=== PATIENT | male | born 1950 | race Hispanic/Latino ===

== ENCOUNTER 2017-08-10 18:44 | Emergency (ER) | payer OTHER ==
[2017-08-10 19:33] LABS: APPEARANCE,URINE Clear (CLEAR); BILIRUBIN,URINE Negative (NEGATIVE); COLOR,URINE Yellow (YELLOW); GLUCOSE, URINE (UA) Negative (NEGATIVE); KETONES,URINE Negative (NEGATIVE); LEUKOCYTE ESTERASE ,URINE Negative (NEGATIVE); NITRATE,URINE Negative (NEGATIVE); OCCULT BLOOD,URINE Negative (NEGATIVE); PH,URINE 5.5 (5.0-8.0); PROTEIN,URINE Negative (NEGATIVE)
[2017-08-10 19:33] LABS: BASOPHILS % (AUTO) 0.2 % (0.0-5.0); HEMATOCRIT 40.8 % (42-54); LYMPHOCYTES % (AUTO) 29.2 % (21.0-51.0); MEAN CORPUSCULAR HEMOGLOBIN 33.1 pg (27.0-33.0); MEAN CORPUSCULAR HGB CONC 37.7 g/dL (32.0-36.0); MONOCYTES % (AUTO) 6.7 % (3.0-13.0); NEUTROPHILS % (AUTO) 61.9 % (40.0-77.0); NUCLEATED RED BLOOD CELLS 0.1 % (0.0-0.19); PLATELET COUNT (AUTO) 238 K/uL (130-400); RED BLOOD CELL COUNT(AUTO) 4.64 MIL/uL (4.50-6.20); RED CELL DISTRIBUTION WIDTH 13.3 % (11.0-15.5); WHITE BLOOD COUNT (AUTO) 6.8 K/uL (4.8-10.8)
[2017-08-10 19:54] LABS: CREATININE 1.3 mg/dL (0.5-1.5); POTASSIUM 4.1 mmol/L (3.5-5.1)
[2017-08-10 20:00] LABS: ALBUMIN 3.6 g/dL (3.5-5.0); BILIRUBIN,TOTAL 0.8 mg/dL (0.2-1.0); TOTAL PROTEIN, SERUM 7.4 g/dL (6.0-8.3)
[2017-08-10] MEDS ORDERED: CYCLOBENZAPRINE HCL 10 MG TABLET ONE (20:07)
== END 2017-08-10 20:13 | disposition home or self-care (01) ==
LOC: EDH 18:44
DX: M62.838 Other muscle spasm (principal); I10 Essential (primary) hypertension
CPT/HCPCS: 36415; 80053; 81003; 85025; 93005

== ENCOUNTER 2017-11-22 10:33 | Inpatient (IN) | payer OTHER, MEDICARE ==
[~2017-11-22] VITALS: Ht 175.3 cm; Wt 73.0 kg
[2017-11-22 11:21] LABS: BASOPHILS % (AUTO) 0.2 % (0.0-5.0); EOSINOPHILS % (AUTO) 2.5 % (0.0-8.0); HEMATOCRIT 45.1 % (42-54); MEAN CORPUSCULAR HEMOGLOBIN 31.6 pg (27.0-33.0); MEAN CORPUSCULAR HGB CONC 35.3 g/dL (32.0-36.0); MEAN CORPUSCULAR VOLUME 89.5 fL (79-99); MONOCYTES % (AUTO) 9.7 % (3.0-13.0); NEUTROPHILS % (AUTO) 58.6 % (40.0-77.0); NUCLEATED RED BLOOD CELLS 0.1 % (0.0-0.19); PLATELET COUNT (AUTO) 259 K/uL (130-400); RED BLOOD CELL COUNT(AUTO) 5.04 MIL/uL (4.50-6.20); RED CELL DISTRIBUTION WIDTH 12.6 % (11.0-15.5); WHITE BLOOD COUNT (AUTO) 7.1 K/uL (4.8-10.8)
[2017-11-22 11:28] LABS: CREATININE 1.5 mg/dL (0.5-1.5); POTASSIUM 3.5 mmol/L (3.5-5.1)
[2017-11-22 11:36] LABS: INR 1.04 (0.85-1.15); PARTIAL THROMBOPLASTIN TIME 30.7 SEC (26.3-35.5); PROTHROMBIN TIME 10.9 SEC (9.6-11.6)
[2017-11-22] MEDS ORDERED: SODIUM CHLORIDE 0.9% 1000ML 1,000 ML IV ONE (11:53)
[2017-11-22] MEDS ORDERED: SODIUM CHLORIDE 0.9% 500ML 500 ML IV ONE (13:54)
[2017-11-22 18:12] VITALS: BP 135/92
[2017-11-22] MEDS ORDERED: ENOXAPARIN SODIUM 30 MG/0.3 ML SQ SCH (19:00)
[2017-11-22] MEDS ORDERED: PANTOPRAZOLE SODIUM 40 MG TABLET.DR PO SCH (19:00)
[2017-11-22] MEDS: SODIUM CHLORIDE 0.9% 1000ML 1,000 ML IV SCH (19:05)
[2017-11-22 19:30] VITALS: BP 118/93
[2017-11-22] MEDS ORDERED: OMEP40CA37 PO (23:30)
[2017-11-22] MEDS ORDERED: NEBI20TA2 PO (23:30)
[2017-11-22] MEDS ORDERED: FURO40TA7 PO (23:30)
[2017-11-22] MEDS ORDERED: APIX5TAB PO (23:30)
[2017-11-22 23:53] VITALS: BP 148/91
[2017-11-23 04:00] VITALS: BP_SYST 136; BP_SYST 145; BP_DIAS 77; BP_DIAS 84
[2017-11-23 04:01] LABS: HEMATOCRIT 41.4 % (42-54); MEAN CORPUSCULAR HEMOGLOBIN 30.8 pg (27.0-33.0); MEAN CORPUSCULAR HGB CONC 34.3 g/dL (32.0-36.0); MEAN CORPUSCULAR VOLUME 89.9 fL (79-99); NUCLEATED RED BLOOD CELLS 0.1 % (0.0-0.19); PLATELET COUNT (AUTO) 183 K/uL (130-400); RED CELL DISTRIBUTION WIDTH 12.5 % (11.0-15.5)
[2017-11-23 04:42] LABS: CREATININE 1.4 mg/dL (0.5-1.5); POTASSIUM 3.4 mmol/L (3.5-5.1)
[2017-11-23 07:11] VITALS: BP 129/97
[2017-11-23] MEDS: SODIUM CHLORIDE 0.9% 1000ML 1,000 ML IV SCH ×2 (08:05→19:58)
[2017-11-23] MEDS: APIXABAN 5 MG TABLET PO SCH ×2 (09:31→19:58)
[2017-11-23] MEDS: NEBIVOLOL HCL 20 MG TABLET PO SCH ×2 (09:31→19:58)
[2017-11-23] MEDS: PANTOPRAZOLE SODIUM 40 MG TABLET.DR PO SCH (09:31)
[2017-11-23] MEDS: FUROSEMIDE 40 MG TABLET PO SCH ×2 (09:32→19:58)
[2017-11-23] MEDS ORDERED: POTASSIUM CHLORIDE 10% ELIXIR 20 MEQ/15 ML UDCUP PO PRN (10:00)
[2017-11-23] MEDS ORDERED: LIDOCAINE HCL-MPF 1% 2ML VIAL IVP PRN (10:00)
[2017-11-23] MEDS ORDERED: POTASSIUM CHLORIDE 20MEQ/100ML 100 ML IV PRN (10:00)
[2017-11-23 11:52] VITALS: BP 147/96
[2017-11-23] MEDS: POTASSIUM CHLORIDE 20 MEQ ERTAB PO PRN ×2 (12:02→18:48)
[2017-11-23 16:21] VITALS: BP 141/93
[2017-11-23 19:43] VITALS: BP 146/96
[2017-11-23 23:36] VITALS: BP 130/82
[2017-11-24 03:35] VITALS: BP 120/72
[2017-11-24 07:00] VITALS: BP 147/94
[2017-11-24] MEDS: APIXABAN 5 MG TABLET PO SCH (08:27)
[2017-11-24] MEDS: NEBIVOLOL HCL 20 MG TABLET PO SCH (08:27)
[2017-11-24] MEDS: PANTOPRAZOLE SODIUM 40 MG TABLET.DR PO SCH (08:27)
[2017-11-24] MEDS: FUROSEMIDE 40 MG TABLET PO SCH (08:27)
[2017-11-24 11:00] VITALS: BP 131/88
[2017-11-24] MEDS ORDERED: POTA-79 PO (15:01)
== END 2017-11-24 16:55 | disposition home or self-care (01) | DRG 201 ==
LOC: EDH 10:33 → 2DH 15:55
PROVIDERS: ADMIT Hospitalist; ATTEND Hospitalist
DX: I48.91 Unspecified atrial fibrillation (principal); S09.90XA Unspecified injury of head, initial encounter; I48.2 Chronic atrial fibrillation; I10 Essential (primary) hypertension; W06.XXXA Fall from bed, initial encounter; X58.XXXA Exposure to other specified factors, initial encounter; Z79.01 Long term (current) use of anticoagulants; Y93.89 Activity, other specified; Y92.098 Other place in other non-institutional residence as the place of occurrence of the external cause; Y99.8 Other external cause status; Z83.3 Family history of diabetes mellitus; Z82.49 Family history of ischemic heart disease and other diseases of the circulatory system; Z80.3 Family history of malignant neoplasm of breast
CPT/HCPCS: 36415; 70450; 71045; 72125; 80048; 82550; 83735; 84443; 84484; 85025; 85027; 85610; 85651; 85730; 86901; 87040; 93005; 93306; J1650; J7030; J7040

== ENCOUNTER 2020-07-29 18:17 | Observation (INO) | payer MEDICARE, OTHER ==
[~2020-07-29] VITALS: Ht 175.3 cm; Wt 72.6 kg
[~2020-07-29 18:17] MED LIST: APIX5TAB PO; FURO40TA7 PO; NEBI20TA2 PO; OMEP40CA13 PO; POTA-79 PO
[2020-07-29] MEDS ORDERED: ONDANSETRON HCL 4 MG/2 ML VIAL ONE (18:36)
[2020-07-29] MEDS ORDERED: KETOROLAC TROMETHAMINE 30MG/ML ONE (18:37)
[2020-07-29 18:53] LABS: BASOPHILS % (AUTO) 1.6 % (0.0-5.0); EOSINOPHILS % (AUTO) 3.3 % (0.0-8.0); HEMATOCRIT 42.1 % (42-54); LYMPHOCYTES % (AUTO) 40.2 % (21.0-51.0); MEAN CORPUSCULAR HEMOGLOBIN 31.6 pg (27.0-33.0); MEAN CORPUSCULAR HGB CONC 36.3 g/dL (32.0-36.0); MONOCYTES % (AUTO) 6.5 % (3.0-13.0); NEUTROPHILS % (AUTO) 47.8 % (40.0-77.0); PLATELET COUNT (AUTO) 244 K/uL (130-400); RED BLOOD CELL COUNT(AUTO) 4.84 MIL/uL (4.50-6.20); RED CELL DISTRIBUTION WIDTH 11.6 % (11.0-15.5); WHITE BLOOD COUNT (AUTO) 7.1 K/uL (4.8-10.8)
[2020-07-29 18:56] LABS: APPEARANCE,URINE Clear (CLEAR); BILIRUBIN,URINE Negative (NEGATIVE); COLOR,URINE Yellow (YELLOW); GLUCOSE, URINE (UA) Negative (NEGATIVE); KETONES,URINE Negative (NEGATIVE); LEUKOCYTE ESTERASE ,URINE Negative (NEGATIVE); NITRATE,URINE Negative (NEGATIVE); OCCULT BLOOD,URINE Negative (NEGATIVE); PROTEIN,URINE Negative (NEGATIVE); UROBILINOGEN,URINE 0.2 mg/dL (0.2-1.0)
[2020-07-29 19:12] LABS: CREATININE 1.4 mg/dL (0.5-1.5); POTASSIUM 3.4 mmol/L (3.5-5.1)
[2020-07-29 19:21] LABS: ALBUMIN 3.6 g/dL (3.5-5.0); BILIRUBIN,TOTAL 1.4 mg/dL (0.2-1.0); TOTAL PROTEIN, SERUM 7.4 g/dL (6.0-8.3)
[2020-07-29] MEDS ORDERED: MAGNESIUM CITRATE 296 ML SOLUTION ONE (19:21)
[2020-07-29] MEDS ORDERED: LACTULOSE 20 GM/30 ML UDCUP ONE (19:21)
[2020-07-29] MEDS ORDERED: LEVOFLOXACIN 500 MG TABLET ONE (19:54)
[2020-07-29] MEDS ORDERED: METRONIDAZOLE 500 MG TABLET ONE (19:54)
[2020-07-29] MEDS ORDERED: KETOROLAC TROMETHAMINE 15MG/ML IV PRN (20:00)
[2020-07-29] MEDS ORDERED: LACTULOSE 20 GM/30 ML UDCUP PO PRN (20:00)
[2020-07-29] MEDS ORDERED: ONDANSETRON HCL 4 MG/2 ML VIAL IV PRN (20:00)
[2020-07-29] MEDS ORDERED: LACTATED RINGERS 1000ML 1,000 ML IV SCH (20:00)
[2020-07-29] MEDS ORDERED: COMPOUND IV MISC 1 EACH IVSOLN MISC PRN (20:15)
[2020-07-29] MEDS ORDERED: FAMOTIDINE/PF 20 MG/2 ML VIAL IV SCH (21:00)
[2020-07-29] MEDS ORDERED: FAMOTIDINE/PF 20 MG/2 ML VIAL IV ONE (21:06)
[2020-07-29] MEDS ORDERED: METRONIDAZOLE 250MG/50ML 50 ML IV SCH (22:00)
[2020-07-30] MEDS ORDERED: KETOROLAC TROMETHAMINE 15MG/ML ONE ×2 (02:20→20:11)
[2020-07-30 04:45] LABS: HEMATOCRIT 36.1 % (42-54); MEAN CORPUSCULAR HEMOGLOBIN 31.2 pg (27.0-33.0); MEAN CORPUSCULAR HGB CONC 35.7 g/dL (32.0-36.0); MEAN CORPUSCULAR VOLUME 87.4 fL (79-99); RED BLOOD CELL COUNT(AUTO) 4.13 MIL/uL (4.50-6.20); RED CELL DISTRIBUTION WIDTH 11.7 % (11.0-15.5); WHITE BLOOD COUNT (AUTO) 4.6 K/uL (4.8-10.8)
[2020-07-30 04:55] LABS: INR 1.01 (0.85-1.15)
[2020-07-30 04:57] LABS: PARTIAL THROMBOPLASTIN TIME 25.9 SEC (26.3-35.5)
[2020-07-30 05:03] LABS: ALBUMIN 2.8 g/dL (3.5-5.0); BILIRUBIN,TOTAL 0.7 mg/dL (0.2-1.0); CREATININE 1.2 mg/dL (0.5-1.5); MAGNESIUM 2.2 mg/dL (1.80-2.40); POTASSIUM 3.7 mmol/L (3.5-5.1)
[2020-07-30] MEDS ORDERED: LEVOFLOXACIN 750 MG/D5W 150 ML 150 ML IV SCH (09:00)
[2020-07-30] MEDS ORDERED: LEVOFLOXACIN 750 MG/D5W 150 ML 150 ML ONE (09:01)
[2020-07-30] MEDS ORDERED: FAMOTIDINE/PF 20 MG/2 ML VIAL IV ONE ×2 (09:01→22:02)
[2020-07-30] MEDS ORDERED: METRONIDAZOLE 500MG/100ML BAG 100 ML ONE (22:01)
[2020-07-30] MEDS ORDERED: HYDRALAZINE HCL 20 MG/ML VIAL ONE (23:52)
[2020-07-31] MEDS ORDERED: HYDRALAZINE HCL 20 MG/ML VIAL IV PRN (03:45)
[2020-07-31] MEDS ORDERED: POLY17PO4 PO (08:39)
== END 2020-07-31 11:10 | disposition home or self-care (01) ==
LOC: EDH 18:17 → EDHIP 19:50 → 3AH 07-31 08:21 → EDHIP 07-31 08:22
PROVIDERS: ADMIT Family Medicine; ATTEND Family Medicine
DX: R10.84 Generalized abdominal pain (principal); Z20.822 Contact with and (suspected) exposure to COVID-19; R11.2 Nausea with vomiting, unspecified; K59.00 Constipation, unspecified; I10 Essential (primary) hypertension; I48.91 Unspecified atrial fibrillation; D68.59 Other primary thrombophilia; Z87.891 Personal history of nicotine dependence; Z79.01 Long term (current) use of anticoagulants; Z79.899 Other long term (current) drug therapy
CPT/HCPCS: 36415 ×2; 71045; 74176; 80053 ×2; 81003; 83690; 83735; 84145; 84484; 85025; 85027; 85610; 85730; 87426; 93005; 99285; G0378 ×39; J0360; J1885 ×3; J1956 ×2; J2405; J3490 ×4

== ENCOUNTER 2021-03-24 16:48 | Observation (INO) | payer MEDICARE ==
[~2021-03-24] VITALS: Ht 167.6 cm; Wt 71.4 kg
[~2021-03-24 16:48] MED LIST changes: -OMEP40CA13 PO; +OMEP40CA21 PO; +POLY17PO4 PO
[2021-03-24 17:29] LABS: BASOPHILS % (AUTO) 0.9 % (0.0-5.0); EOSINOPHILS % (AUTO) 1.9 % (0.0-8.0); HEMATOCRIT 41.1 % (42-54); LYMPHOCYTES % (AUTO) 15.7 % (21.0-51.0); MEAN CORPUSCULAR HEMOGLOBIN 31.7 pg (27.0-33.0); MONOCYTES % (AUTO) 7.6 % (3.0-13.0); NEUTROPHILS % (AUTO) 73.3 % (40.0-77.0); PLATELET COUNT (AUTO) 196 K/uL (130-400); RED BLOOD CELL COUNT(AUTO) 4.67 MIL/uL (4.50-6.20); RED CELL DISTRIBUTION WIDTH 11.9 % (11.0-15.5); WHITE BLOOD COUNT (AUTO) 7.9 K/uL (4.8-10.8)
[2021-03-24] MEDS ORDERED: MORPHINE 2 MG SYG IVP ONE ×2 (17:30→19:30)
[2021-03-24 17:40] LABS: CREATININE 1.4 mg/dL (0.5-1.5); POTASSIUM 3.2 mmol/L (3.5-5.1)
[2021-03-24 17:44] LABS: ALBUMIN 3.8 g/dL (3.5-5.0); TOTAL PROTEIN, SERUM 7.4 g/dL (6.0-8.3)
[2021-03-24] MEDS ORDERED: 0.9%NACL 1000ML 1,000 ML IV ONE (19:30)
[2021-03-24 20:16] LABS: APPEARANCE,URINE Clear (CLEAR); BILIRUBIN,URINE Negative (NEGATIVE); COLOR,URINE Yellow (YELLOW); GLUCOSE, URINE (UA) Negative (NEGATIVE); KETONES,URINE Negative (NEGATIVE); LEUKOCYTE ESTERASE ,URINE Negative (NEGATIVE); NITRATE,URINE Negative (NEGATIVE); OCCULT BLOOD,URINE Negative (NEGATIVE); PROTEIN,URINE Negative (NEGATIVE); UROBILINOGEN,URINE 0.2 mg/dL (0.2-1.0)
[2021-03-24] MEDS ORDERED: ACETAMINOPHEN WITH CODEINE 1 TAB TAB PO PRN (20:30)
[2021-03-24] MEDS ORDERED: MORPHINE 2 MG SYG IVP PRN (20:30)
[2021-03-24] MEDS ORDERED: ACETAMINOPHEN 325 MG TAB PO PRN (20:30)
[2021-03-25] VITALS (9 sets, daily range): BP systolic 126–172; BP diastolic 73–119
[2021-03-25] MEDS ORDERED: AMIO200T68 PO (00:17)
[2021-03-25] MEDS ORDERED: AMLO2.5T4 PO (00:17)
[2021-03-25] MEDS ORDERED: PRAV20TA4 PO (00:17)
[2021-03-25] MEDS ORDERED: LISI10TA24 PO (00:17)
[2021-03-25] MEDS ORDERED: HYDRALAZINE 20MG/ML VIAL IV PRN (00:30)
[2021-03-25 05:11] LABS: HEMATOCRIT 36.4 % (42-54); MEAN CORPUSCULAR HEMOGLOBIN 31.2 pg (27.0-33.0); MEAN CORPUSCULAR HGB CONC 35.7 g/dL (32.0-36.0); MEAN CORPUSCULAR VOLUME 87.3 fL (79-99); RED BLOOD CELL COUNT(AUTO) 4.17 MIL/uL (4.50-6.20); RED CELL DISTRIBUTION WIDTH 11.9 % (11.0-15.5); WHITE BLOOD COUNT (AUTO) 7.2 K/uL (4.8-10.8)
[2021-03-25] MEDS ORDERED: POTASSIUM CHLORIDE 10% ELIXIR 20 MEQ/15 ML UDCUP PO PRN (05:30)
[2021-03-25 05:40] LABS: ALBUMIN 3.3 g/dL (3.5-5.0); BILIRUBIN,TOTAL 0.9 mg/dL (0.2-1.0); CREATININE 1.2 mg/dL (0.5-1.5); POTASSIUM 3.2 mmol/L (3.5-5.1); TOTAL PROTEIN, SERUM 6.4 g/dL (6.0-8.3)
[2021-03-25] MEDS: KCL 20 MEQ ERTAB PO PRN ×3 (06:24→11:57)
[2021-03-25] MEDS: AMIODARONE 200 MG TABLET PO SCH (08:49)
[2021-03-25] MEDS: AMLODIPINE 2.5 MG TAB PO SCH (08:49)
[2021-03-25] MEDS: FAMOTIDINE 20MG TAB PO SCH (08:49)
[2021-03-25] MEDS: LISINOPRIL 10 MG TABLET PO SCH (08:49)
[2021-03-25] MEDS: APIXABAN 5 MG TABLET PO SCH ×2 (08:50→21:41)
[2021-03-25] MEDS: BYSTOLIC 20 MG PO SCH ×2 (08:54→20:39)
[2021-03-25] MEDS ORDERED: 0.9% NACL 500ML IV.SOLN 500 ML IV SCH (19:30)
[2021-03-25] MEDS: NS-20 MEQ KCL 1000ML 1,000 ML IV SCH (20:37)
[2021-03-25] MEDS ORDERED: ATORVASTATIN 10 MG TABLET PO SCH (21:00)
[2021-03-26] MEDS: NS-20 MEQ KCL 1000ML 1,000 ML IV SCH (03:52)
[2021-03-26 04:20] VITALS: BP 145/75
[2021-03-26 04:37] LABS: BASOPHILS % (AUTO) 0.7 % (0.0-5.0); EOSINOPHILS % (AUTO) 0.9 % (0.0-8.0); HEMATOCRIT 35.7 % (42-54); LYMPHOCYTES % (AUTO) 17.1 % (21.0-51.0); MEAN CORPUSCULAR HEMOGLOBIN 31.5 pg (27.0-33.0); MEAN CORPUSCULAR HGB CONC 34.7 g/dL (32.0-36.0); MEAN CORPUSCULAR VOLUME 90.6 fL (79-99); MONOCYTES % (AUTO) 10.5 % (3.0-13.0); NEUTROPHILS % (AUTO) 70.6 % (40.0-77.0); PLATELET COUNT (AUTO) 154 K/uL (130-400); RED BLOOD CELL COUNT(AUTO) 3.94 MIL/uL (4.50-6.20); WHITE BLOOD COUNT (AUTO) 5.7 K/uL (4.8-10.8)
[2021-03-26 04:53] LABS: ALBUMIN 3.1 g/dL (3.5-5.0); BILIRUBIN,TOTAL 0.8 mg/dL (0.2-1.0); CREATININE 1.2 mg/dL (0.5-1.5); MAGNESIUM 1.6 mg/dL (1.80-2.40); POTASSIUM 3.3 mmol/L (3.5-5.1); TOTAL PROTEIN, SERUM 6.4 g/dL (6.0-8.3)
[2021-03-26] MEDS ORDERED: MAGNESIUM 2GM PREMIX 50ML 50 ML IV PRN (05:30)
[2021-03-26 07:37] VITALS: BP 134/77
[2021-03-26] MEDS: BYSTOLIC 20 MG PO SCH (09:00)
[2021-03-26] MEDS: AMIODARONE 200 MG TABLET PO SCH (10:20)
[2021-03-26] MEDS: LISINOPRIL 10 MG TABLET PO SCH (10:20)
[2021-03-26] MEDS: APIXABAN 5 MG TABLET PO SCH (10:20)
[2021-03-26] MEDS: AMLODIPINE 2.5 MG TAB PO SCH (10:20)
[2021-03-26] MEDS: FAMOTIDINE 20MG TAB PO SCH (10:21)
[2021-03-26 12:00] VITALS: BP_SYST 144; BP_SYST 147; BP_DIAS 76; BP_DIAS 78
[2021-03-26] MEDS ORDERED: LOPERAMIDE HCL 2 MG CAP PO SCH (13:00)
[2021-03-26] MEDS ORDERED: LOPERAMIDE HCL 2 MG CAP PO PRN (13:00)
[2021-03-26 16:00] VITALS: BP 154/80
[2021-03-26] MEDS ORDERED: IOHEXOL-350 75 ML VIAL IV ONE (16:11)
== END 2021-03-26 18:55 | disposition home or self-care (01) ==
LOC: EDH 16:48 → EDHIP 20:05 → 3CH 23:23
PROVIDERS: ADMIT Student in an Organized Health Care Education/Training Program; ATTEND Student in an Organized Health Care Education/Training Program
DX: S87.82XA Crushing injury of left lower leg, initial encounter (principal); Z20.822 Contact with and (suspected) exposure to COVID-19; S38.1XXA Crushing injury of abdomen, lower back, and pelvis, initial encounter; N28.9 Disorder of kidney and ureter, unspecified; I10 Essential (primary) hypertension; I48.91 Unspecified atrial fibrillation; K57.30 Diverticulosis of large intestine without perforation or abscess without bleeding; R19.7 Diarrhea, unspecified; W23.0XXA Caught, crushed, jammed, or pinched between moving objects, initial encounter; Y93.89 Activity, other specified; Y92.89 Other specified places as the place of occurrence of the external cause; Y99.8 Other external cause status
CPT/HCPCS: 36415 ×3; 71250; 72170; 73552 ×2; 73562; 73600; 73610; 74176; 74177; 80053 ×3; 81003; 82550 ×3; 83690; 83735; 85025 ×2; 85027; 87324; 87635; 93005; 96361 ×3; 96365; 96375; 96376 ×2; 97161; 99285; G0378 ×47; J3475; J7040; Q9967; 96366; J3480

== ENCOUNTER 2022-08-26 12:34 | Emergency (ER) | payer MEDICARE ==
[~2022-08-26] VITALS: Ht 175.3 cm; Wt 72.6 kg
[~2022-08-26 12:34] MED LIST changes: +AMIO200T68 PO; +AMLO2.5T4 PO; -FURO40TA7 PO; +LISI10TA24 PO; -POLY17PO4 PO; -POTA-79 PO; +PRAV20TA4 PO
[2022-08-26 12:39] VITALS: BP 111/58
[2022-08-26 14:28] LABS: BASOPHILS % (AUTO) 0.7 % (0.0-5.0); EOSINOPHILS % (AUTO) 1.2 % (0.0-8.0); HEMATOCRIT 38.8 % (42-54); LYMPHOCYTES % (AUTO) 18.8 % (21.0-51.0); MEAN CORPUSCULAR HEMOGLOBIN 32.3 pg (27.0-33.0); MEAN CORPUSCULAR HGB CONC 35.6 g/dL (32.0-36.0); MEAN CORPUSCULAR VOLUME 90.9 fL (79-99); NEUTROPHILS % (AUTO) 72.1 % (40.0-77.0); PLATELET COUNT (AUTO) 235 K/uL (130-400); RED BLOOD CELL COUNT(AUTO) 4.27 MIL/uL (4.50-6.20); RED CELL DISTRIBUTION WIDTH 11.6 % (11.0-15.5)
[2022-08-26 14:34] LABS: APPEARANCE,URINE CLEAR (CLEAR); BILIRUBIN,URINE NEGATIVE (NEGATIVE); COLOR,URINE LIGHT-YELLOW (YELLOW); GLUCOSE, URINE (UA) NEGATIVE (NEGATIVE); KETONES,URINE NEGATIVE (NEGATIVE); LEUKOCYTE ESTERASE ,URINE NEGATIVE Leu/uL (NEGATIVE); NITRATE,URINE NEGATIVE (NEGATIVE); OCCULT BLOOD,URINE NEGATIVE (NEGATIVE); PROTEIN,URINE NEGATIVE (NEGATIVE); UROBILINOGEN,URINE 0.2 mg/dL (0.2-1.0)
[2022-08-26 14:48] LABS: CREATININE 1.4 mg/dL (0.5-1.5); POTASSIUM 3.4 mmol/L (3.5-5.1)
[2022-08-26 14:58] LABS: ALBUMIN 3.8 g/dL (3.5-5.0); TOTAL PROTEIN, SERUM 7.4 g/dL (6.0-8.3)
[2022-08-26 15:14] LABS: BACTERIA,URINE RARE /HPF (None Seen); MUCUS,URINE RARE LPF (None Seen); RBC,URINE 0-1 /HPF (0-1); WBC,URINE 0-1 /HPF (0-1)
[2022-08-26] MEDS ORDERED: POTASSIUM BICARB/CIT AC 25 MEQ TABLET.EFF ONE (15:18)
[2022-08-26] MEDS ORDERED: POTASSIUM BICARB/CIT AC 25 MEQ TABLET.EFF PO ONE (15:30)
[2022-08-26] MEDS ORDERED: FAMO20TA8 PO (15:53)
[2022-08-26] MEDS ORDERED: LIDOCAINE HCL 2% VISCOUS 15 ML UDCUP PO ONE (16:00)
[2022-08-26] MEDS ORDERED: MAG/ALUM/SIMETH 30 ML UDCUP PO ONE (16:00)
== END 2022-08-26 16:10 | disposition home or self-care (01) ==
LOC: EDH 12:34
DX: K29.70 Gastritis, unspecified, without bleeding (principal); R10.13 Epigastric pain; K76.0 Fatty (change of) liver, not elsewhere classified; I48.91 Unspecified atrial fibrillation; I10 Essential (primary) hypertension; Z79.01 Long term (current) use of anticoagulants; Z79.899 Other long term (current) drug therapy
CPT/HCPCS: 36415; 71045; 76705; 80053; 81001; 83690; 84484; 85025; 93005

== ENCOUNTER 2023-01-04 12:18 | Emergency (ER) | payer MEDICARE ==
[~2023-01-04] VITALS: Ht 167.6 cm; Wt 67.1 kg
[~2023-01-04 12:18] MED LIST changes: +FAMO20TA8 PO
[2023-01-04 12:43] LABS: BASOPHILS # (AUTO) 0.09 K/uL (0.00-0.20); BASOPHILS % (AUTO) 1.7 % (0.0-5.0); EOSINOPHILS % (AUTO) 3.8 % (0.0-8.0); HEMATOCRIT 38.2 % (42-54); IMMATURE GRANULOCYTE ABSOLUTE 0.01 K/uL (0-1); LYMPHOCYTES # (AUTO) 1.2 K/uL (1.0-4.8); MEAN CORPUSCULAR HEMOGLOBIN 31.9 pg (27.0-33.0); MEAN CORPUSCULAR HGB CONC 35.6 g/dL (32.0-36.0); MEAN CORPUSCULAR VOLUME 89.5 fL (79-99); MONOCYTES # (AUTO) 0.3 K/uL (0.1-1.0); MONOCYTES % (AUTO) 6.4 % (3.0-13.0); NEUTROPHILS # (AUTO) 3.5 K/uL (1.8-7.7); NEUTROPHILS % (AUTO) 64.9 % (40.0-77.0); PLATELET COUNT (AUTO) 182 K/uL (130-400); RED BLOOD CELL COUNT(AUTO) 4.27 MIL/uL (4.50-6.20); RED CELL DISTRIBUTION WIDTH 11.3 % (11.0-15.5); WHITE BLOOD COUNT (AUTO) 5.3 K/uL (4.8-10.8)
[2023-01-04 12:52] LABS: CREATININE 1.3 mg/dL (0.5-1.5); POTASSIUM 3.6 mmol/L (3.5-5.1)
[2023-01-04 12:57] LABS: ALBUMIN 3.2 g/dL (3.5-5.0); BILIRUBIN,TOTAL 0.7 mg/dL (0.2-1.0); TOTAL PROTEIN, SERUM 6.4 g/dL (6.0-8.3)
[2023-01-04 15:25] VITALS: BP 133/70; PULSE 86; RESP 18; O2SAT 98
== END 2023-01-04 15:37 | disposition home or self-care (01) ==
LOC: EDH 12:18
DX: R55 Syncope and collapse (principal); I10 Essential (primary) hypertension; I48.91 Unspecified atrial fibrillation; Z79.899 Other long term (current) drug therapy; Z98.890 Other specified postprocedural states
CPT/HCPCS: 36415; 70450; 72125; 80053; 82948; 84484; 85025; 93005

== ENCOUNTER 2023-09-23 16:26 | Emergency (ER) | payer MEDICARE ==
[~2023-09-23] VITALS: Ht 175.3 cm; Wt 68.0 kg
[~2023-09-23 16:26] MED LIST changes: -NEBI20TA2 PO; +NEBI20TA4 PO
[2023-09-23 17:55] LABS: BASOPHILS % (AUTO) 1.2 % (0.0-5.0); EOSINOPHILS # (AUTO) 0.26 K/uL (0.00-0.70); EOSINOPHILS % (AUTO) 3.2 % (0.0-8.0); HEMATOCRIT 45.8 % (42-54); IMMATURE GRANULOCYTE ABSOLUTE 0.03 K/uL (0-1); LYMPHOCYTES # (AUTO) 3.3 K/uL (1.0-4.8); LYMPHOCYTES % (AUTO) 40.2 % (21.0-51.0); MEAN CORPUSCULAR HEMOGLOBIN 32.4 pg (27.0-33.0); MONOCYTES # (AUTO) 0.7 K/uL (0.1-1.0); MONOCYTES % (AUTO) 7.9 % (3.0-13.0); NEUTROPHILS # (AUTO) 3.9 K/uL (1.8-7.7); NEUTROPHILS % (AUTO) 47.1 % (40.0-77.0); PLATELET COUNT (AUTO) 246 K/uL (130-400); RED BLOOD CELL COUNT(AUTO) 5.09 MIL/uL (4.50-6.20); RED CELL DISTRIBUTION WIDTH 12.8 % (11.0-15.5); WHITE BLOOD COUNT (AUTO) 8.3 K/uL (4.8-10.8)
[2023-09-23 18:24] LABS: CREATININE 1.2 mg/dL (0.5-1.3); POTASSIUM 3.8 mmol/L (3.5-5.1)
[2023-09-23 18:26] LABS: APPEARANCE,URINE CLEAR (CLEAR); BILIRUBIN,URINE NEGATIVE (NEGATIVE); COLOR,URINE COLORLESS (YELLOW); GLUCOSE, URINE (UA) NEGATIVE (NEGATIVE); KETONES,URINE NEGATIVE (NEGATIVE); LEUKOCYTE ESTERASE ,URINE NEGATIVE Leu/uL (NEGATIVE); NITRATE,URINE NEGATIVE (NEGATIVE); OCCULT BLOOD,URINE NEGATIVE (NEGATIVE); PROTEIN,URINE NEGATIVE (NEGATIVE); UROBILINOGEN,URINE 0.2 mg/dL (0.2-1.0)
[2023-09-23 18:27] LABS: ADD UA MICROSCOPIC YES
[2023-09-23 18:28] LABS: BACTERIA,URINE RARE /HPF (None Seen); MUCUS,URINE RARE LPF (None Seen)
[2023-09-23 18:33] LABS: ALBUMIN 3.5 g/dL (3.5-5.0); BILIRUBIN,TOTAL 1.2 mg/dL (0.2-1.0); TOTAL PROTEIN, SERUM 7.4 g/dL (6.0-8.3)
[2023-09-23] MEDS: ONDANSETRON 4MG INJ IVP ONE (18:58)
[2023-09-23] MEDS ORDERED: ONDA-243 PO (19:06)
[2023-09-23 19:14] VITALS: BP 104/67; PULSE 80; RESP 16; O2SAT 100
== END 2023-09-23 19:57 | disposition home or self-care (01) ==
LOC: EDH 16:26
DX: K52.9 Noninfective gastroenteritis and colitis, unspecified (principal); I48.91 Unspecified atrial fibrillation; I10 Essential (primary) hypertension
CPT/HCPCS: 99284; 96374; 84484; 80053; 83690; 85025; 81001; 36415; 93005; J2405

== ENCOUNTER → 2024-07-09 | Outpatient (CLI) | payer MEDICARE ==
[~2024-07-09] MED LIST changes: +LACT10SO85 PO; +ONDA-243 PO
== END | disposition home or self-care (01) ==
LOC: SHCH 10:10
PROVIDERS: ATTEND Student in an Organized Health Care Education/Training Program
DX: I70.203 Unspecified atherosclerosis of native arteries of extremities, bilateral legs (principal); I11.9 Hypertensive heart disease without heart failure; I48.0 Paroxysmal atrial fibrillation; E78.5 Hyperlipidemia, unspecified; M79.605 Pain in left leg
CPT/HCPCS: 93925; 93970

== ENCOUNTER → 2024-07-13 | Outpatient (CLI) | payer MEDICARE ==
--- NOTE | 2024-07-16 10:13 | HMCSR ---
APPROVED REPORT EXAM: Two-dimensional and M-mode echocardiogram with Doppler and color Doppler. INDICATION Atrial Fibrillation 2D Dimensions RVDd3.8 cmLVEF(%)57.8 (>50%)LVED Vol(simp.)97.0 mL IVSd0.9 (0.7-1.1cm)FS(%)30 %LVES Vol(simp.)46.0 mL LVDd4.3 (3.8-5.6cm)Ao Root(2D)2.7 (2.0-3.7cm)LVEF(%, simp.)53 % PWd0.8 (0.7-1.1cm)LVOT diam2.1 (1.8-2.4cm)LA ESV INDEX (BP)44.16 mL/m2 LVDs3.0 (2.5-4.0cm)IVC diam1.6 cm Aortic Valve AoV Vmax1.2 m/Demetri Peak GR5.9 mmHgLVOT Vmax0.7 m/s AoV VTI0.2 mAo Mean GR3.3 mmHgLVOT VTI0.13 m ELISABETH (VMAX)2.09 cm2Al P1/2T947 msAVA (VTI) 2.1 cm2 Mitral Valve MV E Vmax96.1 cm/sDECEL Xdnf621 msMV Peak GR4 mmHg MR Max PG100 mmHgP 1/2 T46 msMV Mean GR1 mmHg MVA (PHT)4.8 cm2MVA (VTI)2.49 cm2 MR Mean PG69 mmHgMR [id number] cm2 Pulmonary Valve PV Vmax1.2 m/sPV VTI0.24 mPV Mean GR3.0 mmHg PV Peak GR6.2 mmHgPI End Lucy. [place] 1.3 cm/s Tricuspid Valve TR Vmax2.6 m/sRAP (EST) 3 ilUkVGUJ66.5 mmHg TR Peak GR26.5 mmHg Left Ventricle Left ventricular cavity size is normal. There is normal LV segmental wall motion. There is normal lef t ventricular wall thickness. LVEF is 50-55%. The LV diastolic function was unable to be assessed due to atrial arrhythmia. Right Ventricle The right ventricle is normal size. Right ventricular systolic function is reduced by TAPSE (1.2cm). Atria The left atrium is moderately dilated. The right atrium is moderately dilated. Aortic Valve Aortic valve is trileaflet. Aortic valve leaflets are sclerotic but open well. Trace aortic regurgita tion. There is no aortic valvular stenosis. Mitral Valve Mitral valve leaflets are mildly sclerotic but open well. Mitral regurgitation is moderate. There is no mitral valve stenosis. Tricuspid Valve The tricuspid valve leaflets appear normal. There is mild tricuspid regurgitation. Right ventricular systolic pressure is estimated at 30 mmHg. Pulmonic Valve Pulmonic valve is not well visualized. There is mild to moderate valvular regurgitation. Great Vessels The aortic root is normal in size. The IVC is normal in size and collapses >50% with inspiration. Pericardium No pericardial effusion. Other Information Quality : Good Conclusion Left ventricular cavity size is normal. LVEF is 50-55% with normal LV segmental wall motion. The LV diastolic function was unable to be assessed due to atrial arrhythmia. Right ventricular systolic function is reduced by TAPSE (1.2cm). There is an ICD/pacemaker lead within the right sided chambers. The left atrium is moderately dilated. Mitral regurgitation is moderate. There is mild to moderate valvular regurgitation. No pericardial effusion.
== END | disposition home or self-care (01) ==
LOC: SHCH 15:04
PROVIDERS: ATTEND Student in an Organized Health Care Education/Training Program
DX: I48.0 Paroxysmal atrial fibrillation (principal)
CPT/HCPCS: 93306

== ENCOUNTER 2024-07-24 13:13 | Emergency (ER) | payer MEDICARE ==
[~2024-07-24] VITALS: Ht 175.3 cm; Wt 68.0 kg
[2024-07-24] MEDS: 0.9%NACL 1000ML 1,000 ML IV STA (13:54)
--- NOTE | 2024-07-24 13:58 | EKG ---
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
[2024-07-24 13:59] LABS: APPEARANCE,URINE CLEAR (CLEAR); BILIRUBIN,URINE NEGATIVE (NEGATIVE); COLOR,URINE COLORLESS (YELLOW); GLUCOSE, URINE (UA) NEGATIVE (NEGATIVE); KETONES,URINE NEGATIVE (NEGATIVE); LEUKOCYTE ESTERASE ,URINE NEGATIVE Leu/uL (NEGATIVE); NITRATE,URINE NEGATIVE (NEGATIVE); OCCULT BLOOD,URINE NEGATIVE (NEGATIVE); PH,URINE 5.5 (5.0-8.0); PROTEIN,URINE NEGATIVE (NEGATIVE); UROBILINOGEN,URINE 0.2 mg/dL (0.2-1.0)
[2024-07-24 14:01] LABS: ADD UA MICROSCOPIC NO
[2024-07-24 14:15] LABS: BASOPHILS # (AUTO) 0.06 K/uL (0.00-0.20); BASOPHILS % (AUTO) 1.1 % (0.0-5.0); EOSINOPHILS # (AUTO) 0.12 K/uL (0.00-0.70); EOSINOPHILS % (AUTO) 2.3 % (0.0-8.0); HEMATOCRIT 37.5 % (42-54); IMMATURE GRANULOCYTE ABSOLUTE 0.01 K/uL (0-1); LYMPHOCYTES # (AUTO) 1.9 K/uL (1.0-4.8); MEAN CORPUSCULAR HEMOGLOBIN 32.8 pg (27.0-33.0); MEAN CORPUSCULAR HGB CONC 36.3 g/dL (32.0-36.0); MEAN CORPUSCULAR VOLUME 90.4 fL (79-99); MONOCYTES # (AUTO) 0.5 K/uL (0.1-1.0); MONOCYTES % (AUTO) 9.1 % (3.0-13.0); NEUTROPHILS # (AUTO) 2.7 K/uL (1.8-7.7); NEUTROPHILS % (AUTO) 51.3 % (40.0-77.0); PLATELET COUNT (AUTO) 178 K/uL (130-400); RED BLOOD CELL COUNT(AUTO) 4.15 MIL/uL (4.50-6.20); RED CELL DISTRIBUTION WIDTH 12.8 % (11.0-15.5); WHITE BLOOD COUNT (AUTO) 5.3 K/uL (4.8-10.8)
[2024-07-24 14:51] LABS: ALBUMIN 3.3 g/dL (3.5-5.0)
[2024-07-24 15:15] LABS: BILIRUBIN,DIRECT 0.2 mg/dL (0.0-0.3); BILIRUBIN,TOTAL 1.3 mg/dL (0.2-1.0); CREATININE 1.4 mg/dL (0.5-1.3); POTASSIUM 3.7 mmol/L (3.5-5.1); TOTAL PROTEIN, SERUM 6.6 g/dL (6.0-8.3)
--- NOTE | 2024-07-24 15:28 | ERN ---
ED Note History of Present Illness Stated Complaint: GENERAL WEAKNESS Chief Complaint: Weakness Time Seen by MD: 13:20 Time Seen by Midlevel: 13:22 Dictation: 74-YEAR-OLD MALE REDDENED VIA EMS FOR GENERALIZED BODY WEAKNESS SINCE FRIDAY. FAMILY STATES YESTERDAY THEY TOOK HIS BLOOD PRESSURE AND IT WAS 80/50. PATIENT ALSO STATES HE HAS BEEN HAVING DIARRHEA AND FREQUENT URINATION. Allergies: Coded Allergies: No Known Drug Allergies (Verified Allergy, Unknown, 01/07/16) Home Meds Active Scripts Lactulose (Lactulose) 10 Gram/15 Ml Solution, 30 ML PO BID for constipation, #500 ML 0 Refills Prov:GARY COLLINS MD 06/21/24 Ondansetron (Ondansetron Odt) 4 Mg Tab.rapdis, 4 MG PO Q6HPRN PRN for nausea, #15 TAB 0 Refills Prov:MYRA HERNADEZ BUCKLE AND BUTTON MAKER 09/23/23 Famotidine (Famotidine) 20 Mg Tablet, 20 MG PO BID for 7 Days, #14 TAB Prov:NAWAF EJNNINGS V CRAWLER TRACTOR OPERATOR 08/26/22 Reported Medications Pravastatin Sodium (Pravastatin Sodium) 20 Mg Tablet, 20 MG PO HS, TAB 03/25/21 Lisinopril (Lisinopril) 10 Mg Tablet, 10 MG PO DAILY, TAB 03/25/21 Amlodipine Besylate (Amlodipine Besylate) 2.5 Mg Tablet, 2.5 MG PO DAILY, TAB 03/25/21 Amiodarone HCl (Amiodarone HCl) 200 Mg Tablet, 200 MG PO DAILY, TAB 03/25/21 Omeprazole (Omeprazole) 40 Mg Capsule.dr, 40 MG PO DAILY, CAP 11/22/17 Apixaban (Eliquis) 5 Mg Tablet, 5 MG PO BID, TAB 11/22/17 Nebivolol HCl (Bystolic) 20 Mg Tablet, 20 MG PO BID, TAB 11/22/17 Past Medical History Past Medical History: A-Fib, Arrythmia, Heart Disease, Hypertension, Vascular Disease Surgical History: Pacer/AICD, None Surgical History Other: RIGHT SHOULDER Family History: CAD Social History: Negative, Lives with family Review of System Dictation CONSTITUTIONAL: PULLING OF GENERALIZED BODY WEAKNESS EYES: NEGATIVE FOR INJURY, PAIN,REDNESS, AND DISCHARGE ENT: NEGATIVE FOR INJURY,PAIN OR SWELLING CARDIOVASCULAR: NEGATIVE FOR CHEST PAIN, PALPITATIONS, AND EDEMA RESPIRATORY: NEGATIVE FOR SHORTNESS OF BREATH, COUGH, AND WHEEZING, ABDOMEN/GI: NEGATIVE FOR ABDOMINAL PAIN, NAUSEA, VOMITING, POSITIVE DIARRHEA, BACK: NEGATIVE FOR INJURY AND PAIN : NEGATIVE FOR INJURY, BLEEDING AND DISCHARGE MS/EXTREMITY: NEGATIVE FOR INJURY AND DEFORMITY SKIN: NEGATIVE FOR RASH, AND DISCOLORATION NEURO: NEGATIVE FOR HEADACHE, WEAKNESS, NUMBNESS, TINGLING, AND SEIZURE PSYCH: NEGATIVE FOR SUICIDE IDEATION, HOMICIDAL IDEATION, AND HALLUCINATIONS Review of Systems: was completed Initial Vital Sign VS Vital Signs Date Time Temp Pulse Resp B/P (MAP) Pulse Ox O2 Delivery O2 Flow Rate FiO2 07/24/24 13:15 98.1 90 16 90/85 98 Room Air 0 07/24/24 13:15 21 Physical Exam Dictation GENERAL: AWAKE, ALERT, NAD HEAD/FACE: NORMOCEPHALIC, ATRAUMATIC EYES: PERRL, EOMI, VISION AT BASELINE ENT: ORAL CAVITY CLEAR, TMS CLEAR, NO SIGNS OF INFECTION NECK: TRACHEA MIDLINE, SUPPLE, NO NUCHAL RIGIDITY CARDIOVASCULAR: RRR, NORMAL S1/S2, NO MRGS, NO JVD RESPIRATORY: CTAB, NO RESPIRATORY DISTRESS, NO RALES OR WHEEZES ABDOMEN: SOFT, NON-TENDER, NON-DISTENDED, NORMAL BOWEL SOUNDS, NO GUARDING OR REBOUND. SKIN: WARM, DRY, NORMAL TURGOR, NO RASH MS/EXTREMITY: PULSES EQUAL, NO CYANOSIS, NEUROVASCULAR INTACT, FROM NEURO: COAX4, GCS 15, STRENGTH 5/5, CN 2-12 INTACT, NORMAL CEREBELLAR EXAM, NORMAL GAIT, PSYCH: NORMAL BEHAVIOR, MOOD, AND AFFECT NORMAL Results (Laboratory/Radiology) Laboratory/Radiology Laboratory Tests Test 07/24/24 13:50 07/24/24 13:52 Urine Color COLORLESS (YELLOW) Urine Appearance CLEAR (CLEAR) Urine pH 5.5 (5.0-8.0) Urine Specific [place] 1.004 (1.001-1.031) Urine Protein NEGATIVE mg/dL (NEGATIVE) Urine Glucose (UA) NEGATIVE mg/dL (NEGATIVE) Urine Ketones NEGATIVE mg/dL (NEGATIVE) Urine Occult Blood NEGATIVE (NEGATIVE) Urine Nitrate NEGATIVE (NEGATIVE) Urine Bilirubin NEGATIVE mg/dL (NEGATIVE) Urine Urobilinogen 0.2 mg/dL (0.2-1.0) Urine Leukocyte Esterase NEGATIVE Serge/uL White Blood Count 5.3 K/uL (4.8-10.8) Red Blood Count 4.15 MIL/uL (4.50-6.20) L Hemoglobin 13.6 g/dL (14.0-18.0) L Hematocrit 37.5 % (42-54) L Mean Corpuscular Volume 90.4 fL (79-99) Mean Corpuscular Hemoglobin 32.8 pg (27.0-33.0) Mean Corpuscular Hemoglobin Concent 36.3 g/dL (32.0-36.0) H Red Cell Distribution Width 12.8 % (11.0-15.5) Platelet Count 178 K/uL (130-400) Mean Platelet Volume 10.1 fL (7.5-10.5) Immature Granulocyte % (Auto) 0.2 % (0-1) Neutrophils (%) (Auto) 51.3 % (40.0-77.0) Lymphocytes (%) (Auto) 36.0 % (21.0-51.0) Monocytes (%) (Auto) 9.1 % (3.0-13.0) Eosinophils (%) (Auto) 2.3 % (0.0-8.0) Basophils (%) (Auto) 1.1 % (0.0-5.0) Neutrophils # (Auto) 2.7 K/uL (1.8-7.7) Lymphocytes # (Auto) 1.9 K/uL (1.0-4.8) Monocytes # (Auto) 0.5 K/uL (0.1-1.0) Eosinophils # (Auto) 0.12 K/uL (0.00-0.70) Basophils # (Auto) 0.06 K/uL (0.00-0.20) Absolute Immature Granulocyte (auto 0.01 K/uL (0-1) Nucleated Red Blood Cells 0.0 % (0.0-0.19) Red Blood Cell Morphology ANISO 1+ Sodium Level 136 mmol/L (136-145) Potassium Level 3.7 mmol/L (3.5-5.1) Chloride Level 102 mmol/L (101-111) Carbon Dioxide Level 25 mmol/L (21-32) Blood Urea Nitrogen 22 mg/dL (7-18) H Creatinine 1.4 mg/dL (0.5-1.3) H Glomerular Filtration Rate Calc 53 mL/min (>90) Random Glucose 85 mg/dL (70-105) Total Calcium 8.2 mg/dL (8.5-10.1) L Total Bilirubin 1.3 mg/dL (0.2-1.0) H Direct Bilirubin 0.2 mg/dL (0.0-0.3) Aspartate Amino Transf (AST/SGOT) 39 U/L (10-37) H Alanine Aminotransferase (ALT/SGPT) 25 U/L (12-78) Alkaline Phosphatase 92 U/L (50-136) Troponin I High Sensitivity < 4 ng/L (4-75) L Total Protein 6.6 g/dL (6.0-8.3) Albumin 3.3 g/dL (3.5-5.0) L Lipase 66 U/L (16-77) Labs Reviewed?: Yes EKG Comment: EKGS DONE AT 1:55 P.M.. VENTRICULAR PACED RHYTHM, BIVENTRICULAR PACED RHYTHM. NO STEMI INTERPRETED BY ER MD. ED Course ED Course Orders Procedure Category Date Status Time Cbc With Differential LAB 07/24/24 Complete 13:33 Urinalysis Profile LAB 07/24/24 Complete 13:33 Troponin I High LAB 07/24/24 Complete Sensitivity 13:33 12 Lead Ekg Tracing- EKG 07/24/24 Complete Technical 13:33 0.9%Nacl 1000ml (Ns PHA 07/24/24 Complete 1000ml) 13:33 Basic Metabolic Panel LAB 07/24/24 Complete 14:13 Hepatic Function Panel LAB 07/24/24 Complete 14:13 Lipase LAB 07/24/24 Complete 14:13 Chest 1vw RAD 07/24/24 Resulted 15:24 Ct Head/Brain W/O CT 07/24/24 Resulted Contrast 15:47 Current Medications Medications (Trade) Dose Ordered Sig/Aster Route PRN Reason Start Time Stop Time Status Last Admin Dose Admin Sodium Chloride 1,000 ml @ 1,000 mls/hr Q1H STAT IV 07/24/24 13:33 07/24/24 14:32 DC 07/24/24 13:54 Vital Signs Date Time Temp Pulse Resp B/P (MAP) Pulse Ox O2 Delivery O2 Flow Rate FiO2 07/24/24 16:16 98.1 80 16 118/76 98 Room Air* 0 21 07/24/24 13:58 98.1 80 16 111/64 100 Room Air* 0 21 07/24/24 13:15 98.1 90 16 90/85 95 Room Air* 0 21 07/24/24 13:15 98.1 90 16 90/85 98 Room Air 0 Medical Decision Making MDM MDM: 74-YEAR-OLD MALE REDDENED VIA EMS FOR GENERALIZED BODY WEAKNESS SINCE FRIDAY. FAMILY STATES YESTERDAY THEY TOOK HIS BLOOD PRESSURE AND IT WAS 80/50. PATIENT ALSO STATES HE HAS BEEN HAVING DIARRHEA AND FREQUENT URINATION., AND FREQUENT FALLS. PATIENT STATES HE FELL ON FRIDAY FROM THE BED, THEN HE HAD A NEAR SYNCOPAL EPISODE IN THE SHOWER.CBC SHOWS NO LEUKOCYTOSIS, MILD NORMOCYTIC ANEMIA, NO THROMBOCYTOPENIA. CHEMISTRY SHOWS ELEVATED CREATININE, HOWEVER THIS CONSISTENT WITH THE PATIENT'S PREVIOUS HISTORY. TROPONIN IS NEGATIVE. EKGS DID NOT SHOW ANY ST ELEVATION OR DYSRHYTHMIAS. CT SCAN SHOWS NO ACUTE FINDINGS. CASE DISCUSSED WITH THE PATIENT, EDUCATED PATIENT THAT WE WILL LIKE TO KEEP HIM ADMITTED FOR FURTHER EVALUATION DUE TO HIS COMORBIDITIES AND SYMPTOMS PRESENTING, PATIENT STATES HE FEELS BETTER AND WOULD RATHER GO HOME. DISCUSSED WITH THE PATIENT IF HE HAD GOES HOME HE WILL NEED TO SIGN OUT AGAINST MEDICAL ADVICE. DISCUSSED WITH THE PATIENT EXTENSIVELY ON POSSIBLE COMPLICATIONS IF HE LEAVES IN HIS MEDICAL ADVICE. PATIENT VERBALIZED UNDERSTANDING, STATES HE FEELS BUT HE WOULD COME BACK TO THE EMERGENCY ROOM. DIFFERENTIAL DIAGNOSIS: DEHYDRATION, CVA, A NEAR SYNCOPAL RATIONALE: TESTS CONSIDERED AND ORDERED SECONDARY TO SHARED DECISION MAKING INCLUDE: LABS, ECG AND RADIOLOGY PREVIOUS OUTSIDE RECORDS REVIEWED: OLD ER VISITS. RISK OF COMPLICATION AND/OR MORBIDITY OR MORTALITY OF PATIENT MANAGEMENT: NONE MEDICATIONS-PER MEDICATION RECONCILIATION NEED FOR HOSPITALIZATION: PATIENT DOES MEET CRITERIA FOR HOSPITALIZATION. NEED FOR EMERGENCY MAJOR/MINOR SURGERY: NO THERE ARE NO SOCIAL CONCERNS WITH THIS PATIENT. PRESCRIPTION DRUG MANAGEMENT PRESCRIPTIONS WILL INCLUDE SYMPTOMATIC CARE PATIENT'S PRIOR EXTERNAL MEDICAL RECORDS FROM OTHER ER VISITS WERE REVIEWED BY ME INDICATED. PRIOR TESTING AND RESULTS FROM PREVIOUS VISITS WERE REVIEWED. PRIOR TESTS WERE TAKEN INTO ACCOUNT WITH MEDICAL DECISION MAKING AND RESOURCE UTILIZATION, INDEPENDENT HISTORIAN/HISTORIANS WERE USED TO OBTAIN COMPLETE MEDICAL HISTORY. I INDEPENDENTLY INTERPRETED THE TEST THAT WERE PERFORMED, RESULTS WERE REVIEWED BY ME AND CONSIDERED FINDINGS ON RADIOLOGY IF ORDERED. MEDICAL MANAGEMENT AND EXAMINATION INTERPRETATION DISCUSSIONS WERE HAD BY ME WITH OTHER QUALIFIED HEALTHCARE PROFESSIONALS INDICATED FOR THE PATIENT'S CARE. DX & DISP Disposition: AMA Departure Impression: Primary Impression: Multiple falls Additional Impression: Generalized weakness Condition: Against Medical Advice Referrals: MARIUSZ VAUGHN MD (PCP) I have reviewed the case, and I agree with, Diagnosis and Plan PATTIE NICOLE NP July 24, 2024 15:28
--- NOTE | 2024-07-24 16:05 | HMCIMG ---
INDICATION: CP TECHNIQUE: CHEST 1VW COMPARISON: 08/26/2022 FINDINGS AND IMPRESSION: No acute consolidation or pleural effusion. Cardiac silhouette is within normal limits. Mild degenerative changes of the spine. Left-sided AICD is noted.
--- NOTE | 2024-07-24 17:18 | HMCIMG ---
Exam Type: CT HEAD/BRAIN W/O CONTRAST Clinical Information: FALL Comparison: None CT Dose Index (CTDI): 57.33 mGy Dose Length Product (DLP): 956.79 total mGy-cm Findings: This study was performed using dose reduction techniques to include automated exposure control and/or adjustment of the mA and/or kV according to patient size. The examination is unremarkable except for atrophy Herring-white matter junction is preserved. No intra or extra axial lesions or fluid collections are seen. Specifically, herring and white matter are normal in signal characteristics with normal caliber of ventricles and periventricular cisterns with no evidence of intra or or extra-axial hemorrhage, lacunar infarct, or major territorial infarct, mass, or other abnormality. There are no infarcts. There are no hemorrhages. Periventricular white matter locations are preserved. The orbital contents and structures of the posterior fossa are intact. Impression: Atrophy. This study was performed using dose reduction techniques to include automated exposure control and/or adjustment of the mA and/or kV according to patient size.
--- NOTE | 2024-07-24 18:18 | NUR ---
PT WAS GOING TO BE ADMITTED PER Rhoda THOMPSON CAN SEALER PT DOES NOT WANT TO STAY IS LEAVING AMA. CAN SEALER AND PRIMARY NURSE AT BEDSIDE. AMA FORMED SIGNS BY PT. PT UNDERSTANDING THE RISKS OF LEAVING AMA
[2024-07-24 18:21] VITALS: BP 111/76; PULSE 78; RESP 16; TEMP 98.1; O2SAT 98
== END 2024-07-24 18:26 | disposition left against medical advice (07) ==
LOC: EDH 13:13
DX: R53.1 Weakness (principal); R29.6 Repeated falls; I10 Essential (primary) hypertension; I48.91 Unspecified atrial fibrillation; Z79.01 Long term (current) use of anticoagulants; Z79.899 Other long term (current) drug therapy; Z95.810 Presence of automatic (implantable) cardiac defibrillator
CPT/HCPCS: 99285; 96360; 96361; 70450; 71045; 80076; 84484; 80048; 83690; 85025; 81003; 36415; 93005; J7030

== ENCOUNTER → 2024-08-13 | Outpatient (CLI) | payer MEDICARE ==
[~2024-08-13] VITALS: Ht 175.3 cm; Wt 66.1 kg
[~2024-08-13] MED LIST changes: +AMLO-513 PO; +ASPI-1443 PO; +ATOR10 PO
[2024-08-13 09:03] VITALS: BP 126/72; PULSE 87; RESP 16; TEMP 97.4
[2024-08-13 09:10] LABS: BASOPHILS # (AUTO) 0.05 K/uL (0.00-0.20); EOSINOPHILS # (AUTO) 0.32 K/uL (0.00-0.70); EOSINOPHILS % (AUTO) 6.5 % (0.0-8.0); HEMATOCRIT 41.2 % (42-54); IMMATURE GRANULOCYTE ABSOLUTE 0.02 K/uL (0-1); LYMPHOCYTES # (AUTO) 1.5 K/uL (1.0-4.8); LYMPHOCYTES % (AUTO) 30.7 % (21.0-51.0); MEAN CORPUSCULAR HEMOGLOBIN 32.7 pg (27.0-33.0); MEAN CORPUSCULAR HGB CONC 36.2 g/dL (32.0-36.0); MEAN CORPUSCULAR VOLUME 90.5 fL (79-99); MONOCYTES # (AUTO) 0.5 K/uL (0.1-1.0); MONOCYTES % (AUTO) 9.7 % (3.0-13.0); NEUTROPHILS # (AUTO) 2.6 K/uL (1.8-7.7); NEUTROPHILS % (AUTO) 51.7 % (40.0-77.0); PLATELET COUNT (AUTO) 184 K/uL (130-400); RED BLOOD CELL COUNT(AUTO) 4.55 MIL/uL (4.50-6.20); RED CELL DISTRIBUTION WIDTH 12.8 % (11.0-15.5)
[2024-08-13 09:17] LABS: CREATININE 1.4 mg/dL (0.5-1.3); POTASSIUM 4.7 mmol/L (3.5-5.1)
[2024-08-13 09:18] LABS: INR 1.04 (0.85-1.15)
[2024-08-13 09:19] LABS: PARTIAL THROMBOPLASTIN TIME 26.8 SEC (26.3-35.5)
[2024-08-13 09:22] LABS: APPEARANCE,URINE CLEAR (CLEAR); BILIRUBIN,URINE NEGATIVE (NEGATIVE); COLOR,URINE COLORLESS (YELLOW); GLUCOSE, URINE (UA) NEGATIVE (NEGATIVE); KETONES,URINE NEGATIVE (NEGATIVE); LEUKOCYTE ESTERASE ,URINE NEGATIVE Leu/uL (NEGATIVE); NITRATE,URINE NEGATIVE (NEGATIVE); OCCULT BLOOD,URINE NEGATIVE (NEGATIVE); PROTEIN,URINE NEGATIVE (NEGATIVE); UROBILINOGEN,URINE 0.2 mg/dL (0.2-1.0)
[2024-08-13 09:23] LABS: ADD UA MICROSCOPIC NO
[2024-08-13 09:39] LABS: B-TYPE NATRIURETIC PEPTIDE 225 pg/mL (0-100)
== END | disposition home or self-care (01) ==
LOC: DAH 08:33 → EDSTATUS 09:00
PROVIDERS: ATTEND Student in an Organized Health Care Education/Training Program
DX: Z01.812 Encounter for preprocedural laboratory examination (principal); I73.9 Peripheral vascular disease, unspecified; I48.0 Paroxysmal atrial fibrillation
CPT/HCPCS: 36415; 80048; 81003; 83880; 85025; 85610; 85730